=== PATIENT | female | born 1990 | race American Indian/Alaskan Native ===

== ENCOUNTER 2017-02-25 07:48 | Emergency (ER) | payer MEDICAID ==
[2017-02-25 07:58] VITALS: BP 126/78
--- NOTE | 2017-02-25 08:35 | Emergency Department Report ---
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 Also, complains of sore throat, fever and nausea that started yesterday. LMP 01/27/2017 Onset/Timin -: hour(s) Radiation: non-radiation Severity scale (0 -10): 6 Quality: aching Consistency: constant Improves with: none Worsens with: eating Associated Symptoms: fever/chills, loss of appetite, nausea/vomiting. denies: confusion, chest pain, cough, headaches, malaise, rash, seizure, shortness of breath, syncope, weakness Treatments Prior to Arrival: none - Related Data Home Medications Medication Instructions Recorded Confirmed Last Taken Vits96/Iron Fum/Folic 1 each PO QDAY 01/07/13 07/28/13 07/27/13 21:00 [ Tablet] i tab valACYclovir [Valtrex] 1 mg PO DAILY 07/28/13 07/28/13 Unknown Previous Rx's Medication Instructions Recorded Last Taken Type Nitrofurantoin [place]/M-Cryst 100 mg PO BID #14 capsule 01/08/13 Unknown Rx [Macrobid] Ibuprofen [Motrin 800 MG tab] 800 mg PO Q6H PRN #30 tablet 07/28/13 Unknown Rx oxyCODONE /ACETAMINOPHEN [Percocet 1 tab PO Q4HR #30 tablet 07/28/13 Unknown Rx 5/325 mg] Diazepam Tab [Valium] 5 mg PO Q8H PRN #21 tablet 03/19/15 Unknown Rx HYDROcodone/APAP 5-325 [[place] 1 each PO Q6HR PRN #20 tablet 03/19/15 Unknown Rx 5/325] Allergies Allergy/AdvReac Type Severity Reaction Status Date / Time No Known Allergies Allergy Verified 07/28/13 09:25 ED Review of Systems ROS: Stated complaint: BILATERAL EAR PAIN Other details as noted in HPI Constitutional: fever. denies: chills, diaphoresis, malaise, weakness Eyes: denies: eye pain, eye discharge, vision change ENT: ear pain (bilateral), throat pain. denies: dental pain, hearing loss, epistaxis, congestion Respiratory: denies: cough, orthopnea, shortness of breath, SOB with exertion, SOB at rest, stridor, wheezing Cardiovascular: denies: chest pain, palpitations, dyspnea on exertion, orthopnea , edema, syncope, paroxysmal nocturnal dyspnea Endocrine: denies: excessive sweating, flushing Gastrointestinal: nausea. denies: abdominal pain, vomiting, diarrhea, constipation, hematemesis, melena, hematochezia Genitourinary: denies: urgency, dysuria, frequency, hematuria Musculoskeletal: denies: back pain, joint swelling, arthralgia Skin: denies: rash, lesions, change in color, change in hair/nails, pruritus Neurological: other (dizziness). denies: headache, weakness, numbness, paresthesias, confusion Psychiatric: denies: anxiety, depression Hematological/Lymphatic: denies: easy bleeding, easy bruising, swollen glands ED Past Medical Hx - Past Medical History Previous Medical History?: No Hx Hypertension: No Hx Diabetes: No Hx Deep Vein Thrombosis: No Hx Renal Disease: No Hx Sickle Cell Disease: No Hx Seizures: No Hx Asthma: No Hx HIV: No - Surgical History Past Surgical History?: Yes Additional Surgical History: 2013. 2010 - Social History Smoking Status: Never Smoker Substance Use Type: None - Medications Home Medications: Home Medications Medication Instructions Recorded Confirmed Last Taken Type Vits96/Iron Fum/Folic 1 each PO QDAY 01/07/13 07/28/13 07/27/13 21:00 History [ Tablet] i tab Nitrofurantoin [place]/M-Cryst 100 mg PO BID #14 capsule 01/08/13 07/28/13 Unknown Rx [Macrobid] Ibuprofen [Motrin 800 MG tab] 800 mg PO Q6H PRN #30 tablet 07/28/13 Unknown Rx oxyCODONE /ACETAMINOPHEN [Percocet 1 tab PO Q4HR #30 tablet 07/28/13 Unknown Rx 5/325 mg] valACYclovir [Valtrex] 1 mg PO DAILY 07/28/13 07/28/13 Unknown History Diazepam Tab [Valium] 5 mg PO Q8H PRN #21 tablet 03/19/15 Unknown Rx HYDROcodone/APAP 5-325 [[place] 1 each PO Q6HR PRN #20 tablet 03/19/15 Unknown Rx 5/325] ED Physical Exam - General Limitations: No Limitations General appearance: alert, in no apparent distress - Head Head exam: Present: atraumatic, normocephalic, normal inspection - Eye Eye exam: Present: normal appearance, PERRL, EOMI Pupils: Present: normal accommodation. Absent: unequal, mydriatic - ENT ENT exam: Present: normal exam, normal orophraynx, mucous membranes dry, mucous membranes moist, TM's normal bilaterally, normal external ear exam - Expanded ENT Exam Expanded Ear exam: Present: normal external inspection. Absent: auricular hematoma, auricular trauma Mouth exam: Present: normal external inspection. Absent: drooling, trismus, muffled voice, tongue normal, tongue elevation, laceration Teeth exam: Present: normal inspection. Absent: dental caries, fractured tooth #, dental tenderness #, gingival enlargement Throat exam: Positive: tonsillar erythema. Negative: tonsillomegaly, tonsillar exudate, R peritonsillar mass, L peritonsillar mass - Neck Neck exam: Present: normal inspection, tenderness (right cervical lymph node), full ROM. Absent: meningismus, lymphadenopathy, thyromegaly - Respiratory Respiratory exam: Present: normal lung sounds bilaterally. Absent: respiratory distress, wheezes, rales, rhonchi, stridor, chest wall tenderness, accessory muscle use, decreased breath sounds, prolonged expiratory - Cardiovascular Cardiovascular Exam: Present: regular rate, normal rhythm, normal heart sounds. Absent: bradycardia, tachycardia, irregular rhythm, systolic murmur, diastolic murmur, rubs, gallop - GI/Abdominal GI/Abdominal exam: Present: soft, tenderness (epigastric, RUQ, LUQ), normal bowel sounds. Absent: guarding, rebound, rigid, hyperactive bowel sounds, hypoactive bowel sounds, organomegaly - Extremities Exam Extremities exam: Present: normal inspection, full ROM, normal capillary refill. Absent: tenderness, pedal edema, joint swelling, calf tenderness - Back Exam Back exam: Present: normal inspection, full ROM. Absent: tenderness, CVA tenderness (R), CVA tenderness (L), muscle spasm - Neurological Exam Neurological exam: Present: alert, oriented X3, CN II-XII intact, normal gait, reflexes normal, other (no neuro focal deficits). Absent: motor sensory deficit - Psychiatric Psychiatric exam: Present: normal affect, normal mood. Absent: depressed, agitated - Skin Skin exam: Present: warm, dry, intact, normal color. Absent: rash ED Course Vital Signs 02/25/17 07:50 Temperature 98.9 F Pulse Rate 97 H Respiratory 22 Rate Blood Pressure 126/78 O2 Sat by Pulse 98 Oximetry - Reevaluation(s) Reevaluation #1: 02/25/17 08:57 antiemetic and laboratory studies ordered Reevaluation #2: 02/25/17 12:02 Dr. Thompson consulted for ultrasound results Reevaluation #3: 02/25/17 12:36 Patient decided to sign out AMA ED Medical Decision Making - Lab Data Result diagrams: 02/25/17 08:58 02/25/17 08:58 Vital Signs 02/25/17 07:50 Temperature 98.9 F Pulse Rate 97 H Respiratory 22 Rate Blood Pressure 126/78 O2 Sat by Pulse 98 Oximetry Lab Results 02/25/17 02/25/17 02/25/17 Range/Units 08:44 08:58 08:58 WBC 16.7 H (4.5-11.0) K/mm3 RBC 4.69 (3.65-5.03) M/mm3 Hgb 9.3 L (10.1-14.3) gm/dl Hct 30.1 L (30.3-42.9) % MCV 64 L (79-97) fl MCH 20 L (28-32) pg MCHC 31 (30-34) % RDW 19.9 H (13.2-15.2) % Plt Count 365 (140-440) K/mm3 Lymph % (Auto) 13.0 L (13.4-35.0) % [place] % (Auto) 8.9 H (0.0-7.3) % Eos % (Auto) 0.2 (0.0-4.3) % Baso % (Auto) 0.3 (0.0-1.8) % Lymph # 2.2 (1.2-5.4) K/mm3 [place] # 1.5 H (0.0-0.8) K/mm3 Eos # 0.0 (0.0-0.4) K/mm3 Baso # 0.1 (0.0-0.1) K/mm3 Seg Neutrophils % 77.6 H (40.0-70.0) % Seg Neutrophils # 13.0 H (1.8-7.7) K/mm3 Sodium 137 (137-145) mmol/L Potassium 4.0 (3.6-5.0) mmol/L Chloride 97.5 L (98-107) mmol/L Carbon Dioxide 26 (22-30) mmol/L Anion Gap 18 mmol/L BUN 7 (7-17) mg/dL Creatinine 0.6 L (0.7-1.2) mg/dL Estimated GFR > 60 ml/min BUN/Creatinine Ratio 12 % Glucose 91 (65-100) mg/dL Calcium 8.6 (8.4-10.2) mg/dL Total Bilirubin 0.30 (0.1-1.2) mg/dL AST 16 (5-40) units/L ALT 18 (7-56) units/L Alkaline Phosphatase 71 (35-129) units/L Total Protein 7.4 (6.3-8.2) g/dL Albumin 4.0 (3.9-5) g/dL Albumin/Globulin Ratio 1.2 % Urine Color Yellow (Yellow) Urine Turbidity Clear (Clear) Urine pH 5.0 (5.0-7.0) Ur Specific [place] 1.026 (1.003-1.030) Urine Protein 30 mg/dl (Negative) mg/dL Urine Glucose (UA) Neg (Negative) mg/dL Urine Ketones Neg (Negative) mg/dL Urine Blood Mod (Negative) Urine Nitrite Neg (Negative) Urine Bilirubin Neg (Negative) Urine Urobilinogen 2.0 (<2.0) mg/dL Ur Leukocyte Esterase Neg (Negative) Urine WBC (Auto) 4.0 (0.0-6.0) /HPF Urine RBC (Auto) 5.0 (0.0-6.0) /HPF U Epithel Cells (Auto) 1.0 (0-13.0) /HPF Urine Mucus 3+ /HPF Urine HCG, Qual Negative (Negative) Microbiology 02/25/17 Unknown Throat Group A Streptococcus Rapid Screen - Final Negative - Radiology Data Radiology results: image reviewed Ultrasound of the abdomen IMPRESSION: Multiple gallstones - Medical Decision Making During the course of ED, orthostatic vital signs, anti-nausea, laboratory and radiology studies were ordered. The laboratory studies WBS was elevated therefore an ultrasound was ordered to evaluate RUQ, epigastric and LUQ tenderness on palpation. The ultrasound detected multiple gallstones with normal thickness of the gallbladder wall. Dr. Thompson was notified for consultation, which he plans on visiting the patient in [place]. After several hours in the ED, the patient decided to sign out AMA because she wanted a second opinion. The patient did not appear in any distress at the time - Differential Diagnosis Cholecystitis, URI, UTI, Critical care attestation.: If time is entered above; I have spent that time in minutes in the direct care of this critically ill patient, excluding procedure time. ED Disposition Disposition: DC-07 LEFT AGAINST MED ADVICE Is pt being admited?: No Does the pt Need Aspirin: No Condition: Undetermined Referrals: SOFÍA SILVERMAN MD [Primary Care Provider] - 3-5 Days Forms: AMA Form Time of Disposition: 12:44 <TYLER CHUNG - Last Filed: 02/26/17 15:17> ED Medical Decision Making - Lab Data Result diagrams: 02/25/17 08:58 02/25/17 08:58
[2017-02-25] MEDS ORDERED: ZOFRAN ODT PO ONE (08:54)
[2017-02-25 08:58] LABS: Bilirubin,Urine NEG (Negative); Blood,Urine MOD (Negative); Ketones,Urine NEG (Negative); Leukocyte Esterase,Urine NEG (Negative); Mucus,Urine 3+ /HPF; Nitrite,Urine NEG (Negative)
[2017-02-25 09:16] LABS: Basophils % (Auto) 0.3 % (0.0-1.8); Eosinophils % (Auto) 0.2 % (0.0-4.3); Hematocrit 30.1 % (30.3-42.9); Hemoglobin 9.3 gm/dl (10.1-14.3); Mean Corpuscular HGB Conc 31 % (30-34); Platelet Count 365 K/mm3 (140-440); Red Blood Count 4.69 M/mm3 (3.65-5.03); Red Cell Distribution Width 19.9 % (13.2-15.2); White Blood Count 16.7 K/mm3 (4.5-11.0)
[2017-02-25 09:18] LABS: Mean Corpuscular Hemoglobin 20 pg (28-32); Mean Corpuscular Volume 64 fl (79-97)
[2017-02-25 09:33] LABS: Alanine Aminotransferase 18 units/L (7-56); Albumin/Globulin Ratio 1.2 %; Alkaline Phosphatase 71 units/L (35-129); Anion Gap 18 mmol/L; BUN/Creatinine Ratio 12; Blood Urea Nitrogen 7 mg/dL (7-17); Calcium 8.6 mg/dL (8.4-10.2); Carbon Dioxide 26 mmol/L (22-30); Chloride 97.5 mmol/L (98-107); Glucose 91 mg/dL (65-100); Sodium 137 mmol/L (137-145); Total Protein 7.4 g/dL (6.3-8.2)
--- NOTE | 2017-02-25 11:22 | Ultrasound Report ---
Ultrasound of the abdomen. History: Upper abdominal pain. Findings: There are multiple gallstones with normal thickness of the gallbladder wall. No pericholecystic fluid is seen. The common bile duct is normal in caliber. The abdominal aorta, liver, and kidneys are normal. The spleen and pancreas are unremarkable. No abnormal fluid collections are seen. Impression: Multiple gallstones.
== END 2017-02-25 12:37 | disposition left against medical advice (07) ==
LOC: ED 07:48
DX: H92.03 Otalgia, bilateral (principal); R42 Dizziness and giddiness; J02.9 Acute pharyngitis, unspecified; R11.0 Nausea
CPT/HCPCS: 36415; 76700; 80053; 81001; 81025; 85025; 87116; 87430; 99284; Q0162